=== PATIENT | female | born 1975 | race Two or more races ===

== ENCOUNTER 2018-10-01 01:37 | Inpatient (IN) | payer MEDICAID ==
[~2018-10-01] VITALS: Ht 152.4 cm; Wt 65.5 kg
--- NOTE | 2018-10-01 04:00 | NUR ---
MS/RN NOTES PER REPORT FROM BRIGIDO ESPINOSA KP. PT RECEIVED ROCEPHINE 2G IV @ 2330 FLAGYL 500MG IV @ 0020 40MEQ KDUR PO AND POTASSIUM CHLORIDE IV 10MEQ X2, LAST DOSE @ 0020 DILAUDID 0.5MG X3 DOSES, LAST DOSE AT 0300 ZOFRAN 4MG IV @ 0300
[2018-10-01 04:30] VITALS: BP 115/73
[2018-10-01] MEDS ORDERED: LORA0.5T PO (04:58)
[2018-10-01 05:00] VITALS: BP 115/73
--- NOTE | 2018-10-01 05:05 | NUR ---
MS/RN OPENING NOTES PT RECEIVED DIRECT ADMIT FROM [facility] VIA [facility]. EMT'S TRANSFERRED PT TO BED. PT IS A/XO3. ROOM AIR, BREATHING EVEN AND UNLABORED. WITH CC OF ABDOMINAL SINCE 4-5PM YESTERDAY AFTER EATING TACOS. HAVING VOMITING AND DIARRHEA X5. IV TO LFA #18 PATENT AND INTACT. ORIENTED PT TO ROOM AND CALL LIGHT. BED IN LOW/LOCKED POSITION WITH CALL LIGHT IN REACH, SEMI FOWLERS POSITION. BILAT. UPPER SIDE RAILS IN PLACE. BELONGINGS LIST COMPLETED. PAGED EPIC REINALDO RENAE FOR ADMITTING ORDERS. WILL CONTINUE TO MONITOR
[2018-10-01] MEDS ORDERED: Z GUARD REMEDY 2 OZ OINT TP PRN (05:30)
[2018-10-01] MEDS ORDERED: MAGNESIUM HYDROXIDE 30 ML UDC PO PRN (05:30)
[2018-10-01] MEDS ORDERED: METRONIDAZOLE 500 MG TABLET PO SCH (05:30)
[2018-10-01] MEDS ORDERED: ACETAMINOPHEN 325 MG TABLET PO PRN (05:30)
[2018-10-01] MEDS ORDERED: CEFTRIAXONE 1 G in IV D5W 50 ML IV SCH (05:30)
--- NOTE | 2018-10-01 05:40 | NUR ---
MS/RN NOTES PT C/O 9/10 SHARP ABDOMINAL PAIN. NOTIFIED TADEO ALMEIDA NP. WITH ORDERS FOR DILAUDID 0.5MG IV Q6H. ORDERS NOTED AND READBACK. ALSO NOTIFIED THAT PT RECEIVED ROCEPHIN 2G AT [facility] AT 2330, OKAY TO CHANGE ADMINISTRATION TIME TO 10/01/18 AT 2330. PT ALSO RECEIVED FLAGYL 500MG IV AT 0020 AT [facility]. CHANGED ADMINISTRATION TIME TO 0830 TO MAINTAIN Q8H FREQUENCY.
[2018-10-01] MEDS: HYDROMORPHONE 1 MG/1 ML DISP.SYRIN IV PRN ×3 (05:50→21:49)
[2018-10-01 07:27] LABS: BASOPHILS % (AUTO) 0.2 % (0.0-2.0); EOSINOPHILS % (AUTO) 0.4 % (0.0-6.0); HEMATOCRIT 35 % (33-45); HEMOGLOBIN 11.8 g/dL (11.5-14.8); LYMPHOCYTES # (AUTO) 2.6 /CMM (0.8-4.8); LYMPHOCYTES % (AUTO) 18.2 % (20.0-44.0); MEAN CORPUSCULAR HGB CONC 34 g/dl (31.0-36.0); MEAN CORPUSCULAR VOLUME 92 fL (82-100); MONOCYTES # (AUTO) 0.9 /CMM (0.1-1.30); MONOCYTES % (AUTO) 6.6 % (2.0-12.0); NEUTROPHILS # (AUTO) 10.5 /CMM (1.8-8.9); NEUTROPHILS % (AUTO) 74.6 % (43.0-81.0); PLATELET COUNT (AUTO) 319 /CMM (150-450); RED BLOOD CELL COUNT(AUTO) 3.79 MIL/uL (4.0-5.2); WHITE BLOOD COUNT (AUTO) 14.1 K/uL (4.3-11.0)
--- NOTE | 2018-10-01 07:29 | NUR ---
MS/RN CLOSING NOTES PT RESTING COMFORTABLY IN BED. A/OX3. ON ROOM AIR, BREATHING EVEN AND UNLABORED. DENIES SOB AND PAIN AT THIS TIME. IV TO LFA PATENT AND INTACT. PRN DILAUDID ADMINISTERED. PT NOTED WITH BLOOD WHEN USING RESTROOM. HAT PLACED IN THE TOILET FOR SPECIMEN COLLECTION. ALL NEEDS MET. ON CLEAR LIQUID DIET. TADEO NOTIFIED TO REVIEW MEDRECON. BED IN LOW/LOCKED POSITION WITH CALL LIGHT IN REACH, BILAT. UPPER SIDE RAILS IN PLACE. HOB ELEVATED. ENDORSED TO DAY SHIFT RN MANISHA.
--- NOTE | 2018-10-01 07:42 | NUR ---
MS RN OPENING NOTE RECEIVED PT IN BED, ALERT AND ORIENTED X4. DENIES CHEST PAIN, SOB, N/V. BREATHING IS EVEN AND UNLABORED ON ROOM AIR. PT DENIES ABD PAIN AT THIS TIME AND IS REQUESTING DIFFERENT MEAL TRAY FROM HER CLEAR LIQUIDS, INFORMED PT THE NURSE WILL ASK PRIMARY HOSPITALIST. LEFT FA #18G IS SALINE LOCKED WITHOUT REDNESS OR SWELLING. ALL NEEDS ATTENDED TO. BED IS LOCKED AND IN LOWEST POSITION, SIDE RAILS UP X2, CALL LIGHT AND POSSESSIONS WITHIN REACH.
[2018-10-01 07:43] LABS: CALCIUM, SERUM 7.4 mg/dL (8.5-10.1); CREATININE 0.6 mg/dL (0.6-1.3); MAGNESIUM 1.9 mg/dL (1.8-2.4)
[2018-10-01] MEDS: HYDROCODONE/APAP 5/325MG 1 EACH TABLET PO PRN ×2 (07:50→17:48)
[2018-10-01 08:00] VITALS: BP 108/72
[2018-10-01] MEDS: METRONIDAZOLE 500 MG TABLET PO SCH ×3 (08:40→20:57)
--- NOTE | 2018-10-01 11:12 | NUR ---
MS RN NOTE INFORMED PRIMARY HOSPITALIST OF PT REQUEST FOR ADDITIONAL PAIN CONTROL, PER HE WILL BE ON THE UNIT SHORTLY.
--- NOTE | 2018-10-01 12:00 | NUR ---
MS RN NOTE PRIMARY HOSPALIST AT THE BEDSIDE FOR ASSESSMENT. INFORMED THAT HOME MED RECON IS STILL NEEDED, PER HE WILL REVIEW.
--- NOTE | 2018-10-01 14:39 | NUR ---
Social service consult requested by REINALDO Mahajan for polysubstance abuse. Pt. is a 43 year old female who was admitted to [facility] for colitis. SW met with pt. bedside. Pt. is alert and oriented x 4. Pt. resides with her and two children ages 11 and 6 at [address] at [address] in [place]. [place]. Pt's emergency contact is her Lisa Mcclendon . Pt. is medication seeking. Pt. suffers from Anxiety and takes Lorazepam daily. Pt. had an appointment with her psychiatrist today at 3:30PM at [facility] and will have to reschedule due to hospitalization. Pt. states she grew up in foster care. Pt's mom four years ago and her sister two months ago. Pt. denies suicidal ideations and visual/auditory hallucinations at this time. Pt. currently works at the [employer] located at [facility] [facility] and [facility]. Pt. currently denies any drug use. No other social service needs are requested at this time. SW is available, if needed.
[2018-10-01 16:00] VITALS: BP 99/67
--- NOTE | 2018-10-01 18:34 | NUR ---
MS RN CLOSING NOTE PT IN BED, ALERT AND ORIENTED X4. DENIES CHEST PAIN, SOB, N/V. BREATHING IS EVEN AND UNLABORED ON ROOM AIR. PT STATES THAT ABD PAIN IS 1/10 AT THIS TIME AND TOLERABLE AFTER NORCO ADMINISTRATION. LEFT FA #18G IS SALINE LOCKED WITHOUT REDNESS OR SWELLING. ALL NEEDS ATTENDED TO. OFFERED TO ASSIST WITH ADLS X2 AND PT REFUSED BOTH TIMES. BED IS LOCKED AND IN LOWEST POSITION, SIDE RAILS UP X2, CALL LIGHT AND POSSESSIONS WITHIN REACH. WILL ENDORSE TO PLY SPLICER NURSE FOR CONTINUITY OF CARE.
[2018-10-01] MEDS ORDERED: PEG 3350/NA SULF,BICARB,CL/KCL 4,000 ML BOTTLE PO ONE (19:00)
--- NOTE | 2018-10-01 19:00 | NUR ---
RN MS OPENING NOTES RECEIVED PATIENT IN BED AWAKE ALERT AND ORIENTED X4, RESPIRATIONS EVEN AND UNLABORED WITH EQUAL RISE AND FALL OF CHEST, DENIES ANY PAIN OR DISCOMFORT AT THIS TIME, IV SITE TO LEFT FA #18 G INTACT AND PATENT, NO REDNESS, NO INFILTRATION PRESENT.ORIENTED TO STAFF AND CALL LIGHT AND KEPT WITHIN REACH, SAFETY PRECAUTIONS IN PLACE, LOW BED AND LOCKED, PATIENT AWARE AWAITING FOR STOOL SPECIMEN, FLUIDS OFFERED, ALL NEEDS ATTENDED AT THIS TIME, DISCUSSED PLAN OF CARE. REMAINS COMFORTABLE WILL CONTINUE TO MONITOR AT THIS TIME.
[2018-10-01 20:00] VITALS: BP 100/68
[2018-10-01 20:24] LABS: APPEARANCE,URINE CLEAR (CLEAR); BILIRUBIN,URINE NEGATIVE (NEGATIVE); BLOOD, URINE 3+ Ery/uL (NEGATIVE); COLOR,URINE YELLOW (YELLOW); KETONES,URINE NEGATIVE (NEGATIVE); LEUKOCYTE ESTERASE ,URINE TRACE (NEGATIVE); NITRITE, URINE NEGATIVE (NEGATIVE); PH,URINE 6.5 (5.0-8.0); PROTEIN,URINE NEGATIVE (NEGATIVE); UGLUCOSE NEGATIVE (NEGATIVE); UROBILINOGEN,URINE 0.2 EU/dL (0.2)
[2018-10-01 20:36] LABS: BACTERIA,URINE Few /HPF (None Seen); WBC,URINE 0-2 /HPF (0-3)
[2018-10-01 20:37] LABS: SQUAMOUS EPITHELIAL CELL,UR Few /HPF (None Seen)
--- NOTE | 2018-10-01 20:40 | NUR ---
RN MS NOTES SEEN BY DASHAWN MATTHEWS TELEMETRY RN WITH NEW ORDERS,PATIENT UNDERSTANDS PLAN OF CARE.
[2018-10-01] MEDS ORDERED: ZOLPIDEM TARTRATE 5 MG TABLET PO PRN (21:00)
[2018-10-01] MEDS ORDERED: POLYETHYLENE GLYCOL 3350 17 GM POWD.PACK PO PRN (21:30)
[2018-10-01] MEDS: METOCLOPRAMIDE HCL 10 MG/2 ML VIAL IV SCH (21:43)
--- NOTE | 2018-10-01 21:49 | NUR ---
RN MS NOTES PATIENT COMPLAINT OF PAIN TO LOWER ABDOMEN AREA, 09/22. REQUESTING FOR PAIN MEDICATION DILAUDID. VS WNL. DILAUDID PRN GIVEN ORDERED. 0.5ML GIVEN ORDERED. REST WASTED WITH ANOTHER RN. WILL CONTINUE TO MONITOR FOR EFFECTIVENESS.
[2018-10-01] MEDS: CEFTRIAXONE 1 G in IV D5W 50 ML IV SCH (22:30)
--- NOTE | 2018-10-01 22:30 | NUR ---
RN MS NOTES RELAYED URINALYSIS PROFILE RESULTS TO REINALDO PIEDRA NO NEW ORDERS AT THIS TIME.
[2018-10-02] MEDS: HYDROMORPHONE 1 MG/1 ML DISP.SYRIN IV PRN ×4 (04:01→23:39)
--- NOTE | 2018-10-02 04:03 | NUR ---
RN MS NOTES PATIENT COMPLAINT OF PAIN 5/10 TO ABDOMEN WITH MOANING AND FACIAL GRIMACING ALSO APPEARS ANXIOUS REQUESTING FOR PAIN MEDICATION DILAUDID. VS WNL DILAUDID PRN GIVEN ORDERED 0.5ML REST VERIFIED AND WASTED WITH ANOTHER RN.
[2018-10-02] MEDS: METRONIDAZOLE 500 MG TABLET PO SCH ×3 (04:08→20:37)
[2018-10-02] MEDS: METOCLOPRAMIDE HCL 10 MG/2 ML VIAL IV SCH ×4 (04:08→21:04)
[2018-10-02 06:23] LABS: BASOPHILS % (AUTO) 0.5 % (0.0-2.0); EOSINOPHILS % (AUTO) 1.8 % (0.0-6.0); HEMATOCRIT 35 % (33-45); HEMOGLOBIN 11.9 g/dL (11.5-14.8); LYMPHOCYTES # (AUTO) 2.8 /CMM (0.8-4.8); LYMPHOCYTES % (AUTO) 32.7 % (20.0-44.0); MEAN CORPUSCULAR HGB CONC 34 g/dl (31.0-36.0); MEAN CORPUSCULAR VOLUME 92 fL (82-100); MONOCYTES # (AUTO) 0.5 /CMM (0.1-1.30); NEUTROPHILS # (AUTO) 5.1 /CMM (1.8-8.9); PLATELET COUNT (AUTO) 330 /CMM (150-450); RED BLOOD CELL COUNT(AUTO) 3.79 MIL/uL (4.0-5.2); WHITE BLOOD COUNT (AUTO) 8.7 K/uL (4.3-11.0)
[2018-10-02 06:36] LABS: BILIRUBIN,TOTAL 0.6 mg/dL (0.2-1.0); CALCIUM, SERUM 8.1 mg/dL (8.5-10.1); CREATININE 0.8 mg/dL (0.6-1.3); MAGNESIUM 1.9 mg/dL (1.8-2.4); PHOSPHORUS 3.3 mg/dL (2.5-4.9); POTASSIUM 3.3 mmol/L (3.5-5.1); TOTAL PROTEIN, SERUM 6.6 g/dL (6.4-8.2)
--- NOTE | 2018-10-02 06:51 | NUR ---
RN MS CLOSING NOTES PATIENT IN BED AWAKE ALERT AND ORIENTED X4, RESPIRATIONS EVEN AND UNLABORED WITH EQUAL RISE AND FALL OF CHEST, DENIES ANY PAIN OR DISCOMFORT AT THIS TIME, IV SITE TO LEFT FA #18 G INTACT AND PATENT, NO REDNESS, NO INFILTRATION PRESENT.CALL LIGHT KEPT WITHIN REACH, SAFETY PRECAUTIONS IN PLACE, LOW BED AND LOCKED, PATIENT AWARE AWAITING FOR STOOL SPECIMEN, FLUIDS OFFERED, GOLYTELY STARTED ORDERED PER BYRON IN AM, ALL NEEDS ATTENDED AT THIS TIME, DISCUSSED PLAN OF CARE. REMAINS COMFORTABLE AT THIS TIME WILL CONTINUE TO MONITOR AND ENDORSE TO NEXT SHIFT.
[2018-10-02] MEDS: ONDANSETRON HCL/PF 4 MG/2 ML VIAL IVP PRN ×2 (07:03→13:39)
--- NOTE | 2018-10-02 07:05 | NUR ---
rn ms notes patient complain of feeling nausea, noted to appear anxious. emesis bag offered, zofran offered,patient agreed to zofran. prn given as ordered patient states "after she eat or drinks anything she get anxiety attacks which restricts her from keeping anything in". will continue to monitor for effectiveness.
--- NOTE | 2018-10-02 07:29 | NUR ---
MS RN OPENING NOTES RECEIVED PATIENT IN BED AWAKE, A/O X4, SLIGHTLY ANXIOUS AND STATED THAT HE FEELS MUCH BETTER AFTER TAKING ZOFRAN IVP A WHILE AGO FOR NAUSEA. ON ROOM AIR, RESPIRATIONS EVEN AND UNLABORED. IV ACCESS ON TO LFA G#18 G INTACT AND PATENT, NO S/S OF INFILTRATIONS AT SITE NOTED. SAFETY PRECAUTIONS IN PLACE. BED IN LOW LOCKED POSITION WITH SR UP X2. WILL CONTINUE TO MONITOR ACCORDINGLY.
--- NOTE | 2018-10-02 07:29 | NUR ---
rn ms notes patient states she feels better after the zofran states " she burped up alot of air and feels better". appears to be calm at this time.
[2018-10-02] MEDS: PANTOPRAZOLE 40 MG TABLET.DR PO SCH (07:38)
[2018-10-02 08:00] VITALS: BP 117/76
[2018-10-02] MEDS: HYDROCODONE/APAP 5/325MG 1 EACH TABLET PO PRN ×3 (08:31→19:52)
[2018-10-02] MEDS: DOCUSATE SODIUM 100 MG CAPSULE PO SCH (08:37)
--- NOTE | 2018-10-02 08:37 | NUR ---
RN NOTES/PAIN MANAGEMENT PATIENT COMPLAINED OF ACHING ABDOMINAL PAIN WITH SCALE OF 6/7. PRN NORCO 5/325MG PO GIVEN AT 0831. WILL CONTINUE TO MONITOR AND REASSESS PT.
--- NOTE | 2018-10-02 08:52 | NUR ---
RN NOTES STOOL SPECIMEN COLLECTED AND CALLED LAB FOR PICK-UP.
--- NOTE | 2018-10-02 11:58 | NUR ---
RN NOTES/PAIN MANAGEMENT PATIENT COMPLAINED OF ACHING ABDOMINAL PAIN WITH SCALE OF 8/10. PRN DILAUDID 0.5MG/ 0.5ML IVP GIVEN AT 1132. WILL CONTINUE TO MONITOR AND REASSESS PT.
[2018-10-02] MEDS ORDERED: POTASSIUM CHLORIDE 20 MEQ TAB.PRT.SR PO SCH (12:30)
[2018-10-02 14:00] LABS: OCCULT BLOOD STOOL NEGATIVE (NEGATIVE)
[2018-10-02 16:00] VITALS: BP 103/59
--- NOTE | 2018-10-02 19:33 | NUR ---
MS RN CLOSING NOTES PATIENT RESTING IN BED AT THIS TIME. AWAKE, A/O X4. ABLE TO MAKE NEEDS KNOWN. ON ROOM AIR, RESPIRATIONS EVEN AND UNLABORED. IV ACCESS ON LFA G#18 G INTACT AND PATENT, NO S/S OF INFILTRATIONS AT SITE NOTED. ALL NEEDS AND CARE ATTENDED WELL. SAFETY PRECAUTIONS KEPT IN PLACE. BED IN LOW LOCKED POSITION WITH SR UP X2. PT NEGATIVE FOR STOOL OCCULT AND AWAITING RESULTS OF C-DIFF TEST. ENDORSED TO GRAVEL TRUCK DRIVER NURSE ILDEFONSO FOR MANISHA.
--- NOTE | 2018-10-02 19:47 | NUR ---
MS/RN OPENING NOTES RECEIVED PATIENT IN BED, AWAKE, ALERT X3 ABLE TO VERBALIZED NEEDS, REPORTED PAIN 5/10 IN ABDOMEN, BOWEL SOUNDS HEARD, LUNGS CLEAR. SKIN INTACT. RESPIRATIONS EVEN AND UNLABORED. WILL MONITOR. CALL LIGHTS WITHIN REACH, BED LOCKED.PROVIDED FLUIDS. NORCO 5-325 MG PO GIVEN WILL MONITOR.
[2018-10-02 20:00] VITALS: BP 129/84
--- NOTE | 2018-10-02 21:45 | NUR ---
STOOL COLLECTED FOR CDIFF, AND WBC PER LAB TO COLLECT .
[2018-10-02] MEDS: CEFTRIAXONE 1 G in IV D5W 50 ML IV SCH (23:33)
[2018-10-03] MEDS: METRONIDAZOLE 500 MG TABLET PO SCH ×3 (04:04→21:04)
[2018-10-03] MEDS: METOCLOPRAMIDE HCL 10 MG/2 ML VIAL IV SCH ×4 (04:04→21:04)
[2018-10-03] MEDS: HYDROMORPHONE 1 MG/1 ML DISP.SYRIN IV PRN ×3 (06:03→19:32)
--- NOTE | 2018-10-03 06:03 | NUR ---
MS/RN NOTES PAIN MEDICATION GIVEN FOR SEVERE PAIN REPORTED BY PATIENT IN ABDOMEN OVER 11/22. IV DILAUDID 0.5ML PRN PRESCRIBED, WILL MONITOR.
[2018-10-03 07:06] LABS: BASOPHILS % (AUTO) 0.6 % (0.0-2.0); EOSINOPHILS % (AUTO) 1.9 % (0.0-6.0); HEMATOCRIT 33 % (33-45); HEMOGLOBIN 11.5 g/dL (11.5-14.8); LYMPHOCYTES # (AUTO) 2.6 /CMM (0.8-4.8); LYMPHOCYTES % (AUTO) 34.8 % (20.0-44.0); MEAN CORPUSCULAR HGB CONC 34 g/dl (31.0-36.0); MEAN CORPUSCULAR VOLUME 92 fL (82-100); MONOCYTES # (AUTO) 0.6 /CMM (0.1-1.30); MONOCYTES % (AUTO) 7.4 % (2.0-12.0); NEUTROPHILS # (AUTO) 4.2 /CMM (1.8-8.9); NEUTROPHILS % (AUTO) 55.3 % (43.0-81.0); PLATELET COUNT (AUTO) 320 /CMM (150-450); RED BLOOD CELL COUNT(AUTO) 3.63 MIL/uL (4.0-5.2); WHITE BLOOD COUNT (AUTO) 7.6 K/uL (4.3-11.0)
--- NOTE | 2018-10-03 07:15 | NUR ---
203-1 MS/RN NOTES PATIENT IN BED ABLE TO SLEEP DURING THE NIGHT, RESPIRATIONS EVEN AND UNLABORES, SKIN WARM TO TOUCH. ON PAIN MANAGMENT MONITORING. WILL ENDORSE TO AM RN FOR MANISHA. BED LOCKED, CALL LIGHTS WITHIN REACH.
[2018-10-03 07:18] LABS: CREATININE 0.7 mg/dL (0.6-1.3); PHOSPHORUS 3.3 mg/dL (2.5-4.9); POTASSIUM 3.5 mmol/L (3.5-5.1)
--- NOTE | 2018-10-03 07:25 | NUR ---
MS RN OPENING NOTES RECEIVED PATIENT AWAKE IN BED IN NO ACUTE SIGNS OF DISTRESS. A/O X4. ABLE TO MAKE NEEDS KNOWN, DENIES PAIN OR ANY DISCOMFORTS AT THIS TIME. ON ROOM AIR, RESPIRATIONS EVEN AND UNLABORED. IV ACCESS ON TO LFA G#18 G INTACT AND PATENT, NO S/S OF INFILTRATIONS NOTED. SAFETY MEASURES IN PLACE. BED IN LOW LOCKED POSITION WITH SR UP X2. WILL CONTINUE TO MONITOR ACCORDINGLY.
[2018-10-03] MEDS: PANTOPRAZOLE 40 MG TABLET.DR PO SCH (07:55)
[2018-10-03 08:00] VITALS: BP 123/74
[2018-10-03] MEDS: HYDROCODONE/APAP 5/325MG 1 EACH TABLET PO PRN ×2 (09:18→22:57)
[2018-10-03] MEDS: DOCUSATE SODIUM 100 MG CAPSULE PO SCH (09:19)
[2018-10-03 13:11] LABS: *ANCANTIMYELOPEROXIDASE (MPO) <9.0 U/mL (0.0-9.0); *ANCANTIPROTEINASE 3 (PR-3) AB <3.5 U/mL (0.0-3.5)
--- NOTE | 2018-10-03 13:21 | NUR ---
RN NOTES/PAIN MANAGEMENT PATIENT COMPLAINED OF ACHING ABDOMINAL PAIN WITH SCALE OF 8/10. PRN DILAUDID 0.5MG/ 0.5ML IVP GIVEN AT 1321. WILL CONTINUE TO MONITOR AND REASSESS PT.
[2018-10-03 15:07] LABS: *ANCA ATYPICAL p-ANCA <1:20 titer (Neg:<1:20); *ANCA CYTOPLASMIC (C-ANCA) <1:20 titer (Neg:<1:20); *ANCA PERINUCLEAR (P-ANCA) <1:20 titer (Neg:<1:20)
[2018-10-03 16:00] VITALS: BP_SYST 123; BP_SYST 130; BP_DIAS 74; BP_DIAS 75
--- NOTE | 2018-10-03 18:48 | NUR ---
MS RN CLOSING NOTES PATIENT AWAKE IN BED IN NO ACUTE SIGNS OF DISTRESS. A/O X4. ABLE TO MAKE NEEDS KNOWN. ON ROOM AIR, WITHOUT SOB NOTED. IV ACCESS ON TO LFA G#18 G INTACT AND PATENT, NO S/S OF COMPLICATIONS OBSERVED DURING THE SHIFT. SAFETY MEASURES IN PLACE. BED IN LOW LOCKED POSITION WITH SR UP X2. ABLE TO VERBALIZE NEEDS. REMAINS STABLE AT THIS TIME. CALL LIGHT WITHIN REACH. WILL ENDORSE TO ROADMASTER NURSE FOR CONTINUITY OF CARE.
--- NOTE | 2018-10-03 19:32 | NUR ---
MS RN OPENING NOTES Patient received in bed, alert, oriented x 4. Breathing even and unlabored. Not in any distress, on room air. Complaining of abdominal pain 6-10/22, requesting for dilaudid. Vital signs stable, dilaudid 0.5mg given as ordered. Safety measures in place. Call light within reach, bed in low, locked position. Will continue to monitor accordingly
[2018-10-03 20:00] VITALS: BP 128/80
[2018-10-03] MEDS: CEFTRIAXONE 1 G in IV D5W 50 ML IV SCH (22:37)
--- NOTE | 2018-10-03 22:58 | NUR ---
MS RN NOTES Patient c/o abdominal pain, 07/23. requested for norco 5- given as ordered. Will continue to monitor
[2018-10-04] MEDS: HYDROMORPHONE 1 MG/1 ML DISP.SYRIN IV PRN ×3 (02:44→18:29)
--- NOTE | 2018-10-04 02:45 | NUR ---
RN NOTES Patient c/o abdominal pain, 11/22. Dilaudid 0.5mg given as ordered. Excess wasted with another RN. Will continue to monitor
[2018-10-04] MEDS: METOCLOPRAMIDE HCL 10 MG/2 ML VIAL IV SCH ×3 (04:04→16:30)
[2018-10-04] MEDS: METRONIDAZOLE 500 MG TABLET PO SCH ×2 (04:05→12:50)
[2018-10-04 06:17] LABS: BASOPHILS % (AUTO) 0.7 % (0.0-2.0); EOSINOPHILS % (AUTO) 1.5 % (0.0-6.0); HEMATOCRIT 35 % (33-45); HEMOGLOBIN 11.9 g/dL (11.5-14.8); LYMPHOCYTES # (AUTO) 2.7 /CMM (0.8-4.8); MEAN CORPUSCULAR HGB CONC 34 g/dl (31.0-36.0); MEAN CORPUSCULAR VOLUME 92 fL (82-100); MONOCYTES # (AUTO) 0.6 /CMM (0.1-1.30); MONOCYTES % (AUTO) 8.2 % (2.0-12.0); NEUTROPHILS # (AUTO) 3.9 /CMM (1.8-8.9); NEUTROPHILS % (AUTO) 52.6 % (43.0-81.0); PLATELET COUNT (AUTO) 316 /CMM (150-450); RED BLOOD CELL COUNT(AUTO) 3.82 MIL/uL (4.0-5.2); WHITE BLOOD COUNT (AUTO) 7.4 K/uL (4.3-11.0)
--- NOTE | 2018-10-04 06:19 | NUR ---
MS RN CLOSING NOTES Patient resting in bed, alert, oriented x 4. Breathing even and unlabored. Not in any distress, on room air. No complaints of pain or discomfort at this time. No acute changes overnight. Safety measures in place; call light within reach, bed in low, locked position. Will endorse MANISHA to oncoming RN
[2018-10-04 06:38] LABS: ALBUMIN 3.1 g/dL (3.4-5.0); BILIRUBIN,TOTAL 0.5 mg/dL (0.2-1.0); CALCIUM, SERUM 8.4 mg/dL (8.5-10.1); CREATININE 0.7 mg/dL (0.6-1.3); MAGNESIUM 1.9 mg/dL (1.8-2.4); POTASSIUM 3.4 mmol/L (3.5-5.1); TOTAL PROTEIN, SERUM 6.7 g/dL (6.4-8.2)
[2018-10-04 08:00] VITALS: BP 131/83
--- NOTE | 2018-10-04 08:00 | NUR ---
RN NOTES RECEIVED PATIENT IN THE BED A/O X4, . PATIENT HAS NO ACUTE RESPIRATORY DISTRESS,UNLABORED, V/S STABLE. ENCOURAGED TO EXPRESS FEELINGS AND CONCERNS. PATIENT WAS COMPLAINING OF PAIN GENERALIZED 3/10, ADMINISTERED SCHEDULED MEDICATION. IV ACCESS ON LEFT FA INTACT. NEEDS ATTENDED AND ANTICIPATED, SAFETY PRECAUTION MAINTAINED ALL THE TIME.
[2018-10-04] MEDS: DOCUSATE SODIUM 100 MG CAPSULE PO SCH ×2 (08:21→08:30)
[2018-10-04] MEDS: HYDROCODONE/APAP 5/325MG 1 EACH TABLET PO PRN (08:21)
--- NOTE | 2018-10-04 08:21 | NUR ---
RN NOTES ADMINISTERED NARCO 5/325 MG PO PRN FOR GENERALIZED PAIN 06/22 PER PATIENT REQUEST, V/S TAKEN BP 131/83, P-67, CONTINUED MONITORING.
[2018-10-04] MEDS: PANTOPRAZOLE 40 MG TABLET.DR PO SCH (08:22)
[2018-10-04 08:52] VITALS: BP 131/83
[2018-10-04] MEDS ORDERED: POTASSIUM CHLORIDE 20 MEQ TAB.PRT.SR PO ONE (09:30)
[2018-10-04] MEDS: ONDANSETRON HCL/PF 4 MG/2 ML VIAL IVP PRN (12:08)
--- NOTE | 2018-10-04 12:08 | NUR ---
RN NOTES ADMINISTERED DILAUDID 0.5 MG/ML IV PUSH, AND ZOFRAN 4 MG/ML IV PUSH FOR NAUSEA, V/S TAKEN BP-123/83, P-71, CONTINUED MONITORING.
--- NOTE | 2018-10-04 12:44 | NUR ---
RN NOTES MEDICATION WERE ADMINISTERED FOR PAIN AND NAUSEA EFFECTIVE. PATIENT STABKE. PATIET GETTING US OF KIDNEY AT THIS TIME. CONTINUED MONITORING.
[2018-10-04 16:07] VITALS: BP 122/77
--- NOTE | 2018-10-04 18:29 | NUR ---
RN NOTES ADMINISTERED DILAUDID 0.5 MG/ML IV PUSH FOR PAIN 10/22 PER PATIENT REQUEST. PATIENT WILL SEE GI CUSTOMER MANAGER BYRON. PATIENT STABLE V/S WNL. PATIENT AMBULATORY SELF CARE. ENDORSED ONCOMING NURSE FOLLOW PLAN OF CARE.
[2018-10-04] MEDS ORDERED: ACET-907 PO (18:30)
[2018-10-04] MEDS ORDERED: ESOM40CA PO (18:30)
[2018-10-04] MEDS ORDERED: ONDA4TAB11 PO (18:30)
[2018-10-04] MEDS ORDERED: DOCU-270 PO (18:30)
[2018-10-04 20:00] VITALS: BP 127/78
--- NOTE | 2018-10-04 21:07 | NUR ---
INDUSTRIAL NURSE NOTES PATIENT WAS DISCHARGED AT 2106 VIA WHEELCHAIR. ESCORTED BY CRISTOPHER ORDOÑEZ. PICKED HER UP. PAPERS SIGNED AND COPIED. PATIENT IS AWARE SHE SHOULD COME TO [facility] TO RECEIVE HER WORK NOTE. VITALS PRIOR TO D/C: 127/72, PULSE 60, RESPIRATORY 16, TEMP 99.0, O2 SAT 99%. PATIENT IN STABLE CONDITION.
== END 2018-10-04 21:07 | disposition home or self-care (01) | DRG 248 ==
LOC: MEDSG2 04:21
PROVIDERS: ADMIT Hospitalist; ATTEND Hospitalist
DX: A04.9 Bacterial intestinal infection, unspecified (principal); E44.1 Mild protein-calorie malnutrition; N39.0 Urinary tract infection, site not specified; E88.09 Other disorders of plasma-protein metabolism, not elsewhere classified; N28.1 Cyst of kidney, acquired; K64.9 Unspecified hemorrhoids; D72.829 Elevated white blood cell count, unspecified; F41.9 Anxiety disorder, unspecified; F32.9 Major depressive disorder, single episode, unspecified; E87.6 Hypokalemia; F19.10 Other psychoactive substance abuse, uncomplicated; Z79.1 Long term (current) use of non-steroidal anti-inflammatories (NSAID); Z68.28 Body mass index [BMI] 28.0-28.9, adult; K29.70 Gastritis, unspecified, without bleeding
CPT/HCPCS: 36415; 76770-TC; 80048-TC; 80053-TC; 80061-TC; 81000-TC; 82272-TC; 83520; 83735-TC; 84100-TC; 84703-TC; 85025-TC; 85610-TC; 85652-TC; 85730-TC; 86140-TC; 86256; 87045-TC; 87081-TC; 87086-TC; 89055; G0378; J0696; J1170; J2405; J2765; J7030; J7060

== ENCOUNTER 2019-08-18 18:24 | Emergency (ER) | payer MEDICAID ==
[~2019-08-18] VITALS: Ht 152.4 cm; Wt 65.8 kg
[~2019-08-18 18:24] MED LIST: ACET-907 PO; DOCU-270 PO; ESOM40CA PO; LORA0.5T PO; ONDA4TAB11 PO
[2019-08-18] MEDS ORDERED: IV NS 0.9% 1,000 ML BAG IV ONE (19:00)
[2019-08-18] MEDS ORDERED: LORAZEPAM INJ 2 MG/ML VIAL IV ONE (19:00)
[2019-08-18] MEDS ORDERED: PANTOPRAZOLE 40 MG VIAL IV ONE (19:00)
[2019-08-18] MEDS ORDERED: ONDANSETRON HCL/PF 4 MG/2 ML VIAL IVP ONE (19:00)
[2019-08-18] MEDS ORDERED: LOPERAMIDE HCL (2 MG CAP) 2 MG CAPSULE PO ONE ×2 (19:00→19:04)
[2019-08-18] MEDS ORDERED: PANTOPRAZOLE 40 MG VIAL ONE (19:04)
[2019-08-18] MEDS ORDERED: ONDANSETRON HCL/PF 4 MG/2 ML VIAL ONE (19:04)
[2019-08-18] MEDS ORDERED: LORAZEPAM INJ 2 MG/ML VIAL ONE (19:05)
[2019-08-18 19:17] LABS: BASOPHILS # (AUTO) 0.1 /CMM (0.0-0.2); BASOPHILS % (AUTO) 0.7 % (0.0-2.0); EOSINOPHILS % (AUTO) 1.1 % (0.0-6.0); HEMATOCRIT 41 % (33-45); HEMOGLOBIN 13.8 g/dL (11.5-14.8); LYMPHOCYTES # (AUTO) 2.7 /CMM (0.8-4.8); LYMPHOCYTES % (AUTO) 25.4 % (20.0-44.0); MEAN CORPUSCULAR HGB CONC 34 g/dl (31.0-36.0); MEAN CORPUSCULAR VOLUME 93 fL (82-100); MONOCYTES # (AUTO) 0.7 /CMM (0.1-1.30); MONOCYTES % (AUTO) 6.4 % (2.0-12.0); NEUTROPHILS # (AUTO) 7.2 /CMM (1.8-8.9); NEUTROPHILS % (AUTO) 66.4 % (43.0-81.0); PLATELET COUNT (AUTO) 340 /CMM (150-450); RED BLOOD CELL COUNT(AUTO) 4.41 MIL/uL (4.0-5.2); WHITE BLOOD COUNT (AUTO) 10.8 K/uL (4.3-11.0)
--- NOTE | 2019-08-18 19:23 | NUR ---
BIBS TO ER BED 7. AAOX4. HYPERVENTILATING. ANXIOUS. AMBULATORY. CAME IN FOR GEN ABDOMINAL PAIN W/ MULTIPLE EPISODES OF VOMITING AND DIARRHEA. PT STATES THAT SHE FEELS ANXIOUS BECAUSE OF THE PAIN THAT SHE IS EXPERIENCING. PT STATES TAHT SHE HAD GASTRITIS FROM BEFORE AND FEELS THE SAME. MD WAS AT BEDSIDE FOR EVAL. ORDERS RECEIBED NOTED AND CARRIED OUT. IV LINE OBTAINED ON THE R AC 20 G. BLOOD DRAWN AND GIVEN TO CELLULOSE INSULATION HELPER AT BEDSIDE. MEDICATED ORDERED. WILL CONTINUE TO MONITOR PT
[2019-08-18 19:29] LABS: CALCIUM, SERUM 9.7 mg/dL (8.5-10.1); CREATININE 1.1 mg/dL (0.6-1.3); POTASSIUM 3.6 mmol/L (3.5-5.1)
[2019-08-18 19:34] LABS: ALBUMIN 3.9 g/dL (3.4-5.0); BILIRUBIN,DIRECT 0.2 mg/dL (0.0-0.2); BILIRUBIN,TOTAL 1.3 mg/dL (0.2-1.0); TOTAL PROTEIN, SERUM 8.4 g/dL (6.4-8.2)
[2019-08-18 19:44] LABS: APPEARANCE,URINE Clear (CLEAR); BILIRUBIN,URINE Negative (NEGATIVE); BLOOD, URINE Large Ery/uL (NEGATIVE); COLOR,URINE Yellow (YELLOW); KETONES,URINE Negative (NEGATIVE); LEUKOCYTE ESTERASE ,URINE Negative (NEGATIVE); NITRITE, URINE Negative (NEGATIVE); PH,URINE 5.5 (5.0-8.0); PROTEIN,URINE Negative (NEGATIVE); UGLUCOSE Negative (NEGATIVE); UROBILINOGEN,URINE 0.2 EU/dL (0.2)
[2019-08-18 20:07] LABS: BACTERIA,URINE Few /HPF (None Seen); SQUAMOUS EPITHELIAL CELL,UR Few /HPF (None Seen); WBC,URINE NONE SEEN /HPF (0-3)
[2019-08-18 21:23] VITALS: BP 116/76
--- NOTE | 2019-08-18 21:23 | NUR ---
Patient discharged to home in stable condition. Written and verbal after care instructions given. Patient verbalizes understanding of instruction.IV removed. Catheter intact and site benign. Pressure and 4x4 applied to site. No bleeding noted. Pt ambulatory with a steady gait
== END 2019-08-18 21:40 | disposition home or self-care (01) ==
LOC: ER 18:24
DX: F41.9 Anxiety disorder, unspecified (principal); R11.10 Vomiting, unspecified; R19.7 Diarrhea, unspecified; F19.10 Other psychoactive substance abuse, uncomplicated; R31.9 Hematuria, unspecified; Z98.890 Other specified postprocedural states; Z79.899 Other long term (current) drug therapy
CPT/HCPCS: 36415; 80048; 80076; 80305; 80307; 81001; 83690; 85025; 96361; 96374; 96375; 99284; C9113; J2060; J2405; J7030; 81000-TC; G0480